=== PATIENT | male | born 1980 | race Two or more races ===

== ENCOUNTER 2017-04-08 08:23 | Day surgery (SDC) | payer SELFPAY ==
[2017-04-08 08:29] VITALS: BMI 22.4
--- NOTE | 2017-04-08 09:03 | PDOC ---
History of Present Illness - General Chief Complaint: Pain, Acute Stated Complaint: RT SIDE PAIN Time Seen by Provider: 04/08/17 08:33 - History of Present Illness Initial Comments: 04/08/17 09:01 The patient is a 36 yo m w/ no PMH who comes into the ED c/o RUQ pain and nausea for the past 1 day. Patient states that after dinner last night, he began to feel a dull, burning pain in his RUQ which radiates to his back. The patient describes the pain as being a 9/10, is worse with movement, when pushing in the RUQ or when breathing and has no alleviating factors. Patient has never felt similar pains before. Patient feels short of breath as the pain is worse with deep inspiration. This AM, the patient had one episode of diarrhea. Patient denies chest pain, fevers, chills Past History - Travel Traveled outside of the country in the last 30 days: No Close contact w/someone who was outside of country & ill: No - Past Medical History Allergies/Adverse Reactions: Allergies Allergy/AdvReac Type Severity Reaction Status Date / Time No Known Allergies Allergy Verified 04/08/17 08:26 Home Medications: Ambulatory Orders NK [No Known Home Medication] 04/08/17 COPD: No - Surgical History Abdominal Surgery: Yes (Left inguinal hernia repair) - Immunization History Immunization Up to Date: Yes - Suicide/Smoking/Psychosocial Hx Smoking History: Never smoked Information on smoking cessation initiated: No Hx Alcohol Use: No Drug/Substance Use Hx: No Substance Use Type: None Review of Systems - Review of Systems Able to Perform ROS?: Yes Is the patient limited Sudanese proficient: No Constitutional: No: Chills, Fever HEENTM: No: Blurred Vision, Recent change in vision Respiratory: Yes: Shortness of Breath (limited 2/2 pain). No: Cough, SOB with Exertion Cardiac (ROS): No: Chest Pain, Edema, Lightheadedness, Palpitations ABD/GI: Yes: Symptoms Reported (RUQ pain worse with movment or palpation), Diarrhea. No: Abdominal Distended : No: Burning, Dysuria Integumentary: No: Bruising Neurological: No: Headache, Numbness, Tingling *Physical Exam - Vital Signs Last Vital Signs Temp Pulse Resp BP Pulse Ox 99.2 F 89 146 H 128/72 99 04/08/17 08:26 04/08/17 08:26 04/08/17 08:26 04/08/17 08:26 04/08/17 08:26 - Physical Exam General Appearance: Yes: Appropriately Dressed. No: Apparent Distress HEENT: positive: Normal ENT Inspection Neck: positive: Supple. negative: Tender Respiratory/Chest: positive: Lungs Clear, Normal Breath Sounds. negative: Chest Tender, Respiratory Distress, Accessory Muscle Use Cardiovascular: positive: Regular Rhythm, S1, S2, Tachycardia. negative: Edema , JVD, Murmur, Gallop/S3, Gallop/S4 Gastrointestinal/Abdominal: positive: Normal Bowel Sounds, Tender (tenderness to palpation in RUQ. Real sign positive.), Flat, Soft. negative: Organomegaly , Guarding Musculoskeletal: positive: Normal Inspection. negative: CVA Tenderness Extremity: positive: Normal Inspection Integumentary: positive: Normal Color, Dry, Warm Neurologic: positive: Fully Oriented, Alert ED Treatment Course - LABORATORY CBC & Chemistry Diagram: 04/08/17 09:27 04/08/17 09:27 Medical Decision Making - Medical Decision Making 04/08/17 09:30 The patient is a 36 yo m w/ no PMH who comes into the ED c/o burning/dull RUQ pain, nausea and diarrhea for the past 1 day. Patient started feeling this pain shortly after eating last evening. Patient has pain to palpation and a positive real sign. This is likely a case of cholelithiasis or possibly simple gastritis. -Mylanta and viscous lidocaine PO -IV pepcid -CBC, CMP -Lipase -RUQ US 04/08/17 11:44 -CBC reveals elevated WBC to 14 -RUQ US negative for infection or stones -Patient now complaining of RLQ tenderness, will obtain CT A/P w/ oral and IV contrast. 04/08/17 14:38 -spoke with the surgical PA for Dr. Ramirez, he has agreed to accept the patient for direct admit to the OR. -type and screen as well as coags added on. -patient NPO *DC/Admit/Observation/Transfer Diagnosis at time of Disposition: Appendicitis - Referrals - Patient Instructions - Post Discharge Activity
--- NOTE | 2017-04-08 09:19 | PDOC ---
Attending Attestation - Resident Resident Name: Edgar Hernandez - ED Attending Attestation I have performed the following: I have examined & evaluated the patient, The case was reviewed & discussed with the resident, I agree w/resident's findings & plan, Exceptions are as noted - HPI HPI: 04/08/17 09:14 36yo M denies PMH p/w 1 day of RUQ abd pain. Pain is dull and burning, 9/10, radiates to back, worse with twisting movements. Denies trauma or recent heavy lifting. Pain began after dinner yesterday and progressed overnight. This morning a/w non bloody diarrhea and nausea. Denies associated sxs. Denies hx similar pain. No F/C. No recent travel. No tx tried Denies cp, sob, rashes, le edema, urinary sxs - Physicial Exam PE: 04/08/17 09:16 GENERAL: Awake, alert, and fully oriented, in no acute distress HEAD: No signs of trauma EYES: PERRLA, EOMI, sclera anicteric, conjunctiva clear ENT: Auricles normal inspection, hearing grossly normal, nares patent, oropharynx clear without exudates. Moist mucosa NECK: Normal ROM, supple, no lymphadenopathy, JVD, or masses LUNGS: Breath sounds equal, clear to auscultation bilaterally. No wheezes, and no crackles HEART: Regular rate and rhythm, normal S1 and S2, no murmurs, rubs or gallops ABDOMEN: Soft, +RUQ and meyer's sign, no other ttp. normoactive bowel sounds. No guarding, no rebound. No masses. No CVAT. EXTREMITIES: Normal range of motion, no edema. No clubbing or cyanosis. No cords, erythema, or tenderness NEUROLOGICAL: Normal speech, cranial nerves intact, negative pronator drift, 5/ 5 strength in all 4 extremities, normal sensation to light touch in all 4 extremities, normal cerebellar exam, normal gait, normal reflexes and tone SKIN: Warm, Dry, normal turgor, no rashes or lesions noted. - Medical Decision Making 04/08/17 09:18 36yo M p/w 1 day RUQ a/w diarrhea. Vitals wnl (resp rate 14, not 146 as documented). DDx includes but not limited to cholecystitis vs pancreatitis vs gastritis vs gastroenteritis -labs -US -pain control -reassess 04/08/17 13:09 US negative. On reexam, pain has migrated to RLQ. CTAP with acute appy. CT also reveals enlarged prostate for pt's age. Results discussed with pt, he is aware of acute appy and likely need for surgery. Pt also aware of enlarged prostate and will f/u with PMD for uro referral. Denies urinary sxs. 04/08/17 17:[address] Ramirez for acute appy Discharge Disposition - Diagnosis Appendicitis Qualifiers: Appendicitis type: acute appendicitis - Discharge Dispostion Condition at time of disposition: Stable Admit: Yes - Prescriptions - Referrals - Patient Instructions - Post Discharge Activity - Transfer to Acute Care Facility Transfer comment: 04/08/17 14:22
[2017-04-08] MEDS ORDERED: FAMOTIDINE 20 MG/50 ML IVPB 20 MG/50 ML MG IVPB ONE ×2 (09:22→09:30)
[2017-04-08] MEDS ORDERED: LIDOCAINE VISCOUS 2% ORAL/TOP 20 ML UNIT-DOSE CUP MM ONE (09:22)
[2017-04-08] MEDS ORDERED: MAG HYDROX/AL HYDROX/SIMETH 355 ML ORAL.SUSP PO ONE (09:22)
[2017-04-08] MEDS ORDERED: LIDOCAINE VISCOUS 2% ORAL/TOP 20 ML UNIT-DOSE CUP ONE (09:29)
[2017-04-08] MEDS ORDERED: MAG HYDROX/AL HYDROX/SIMETH 30 ML UNIT-DOSE CUP ONE (09:30)
[2017-04-08 09:53] LABS: BASOPHIL 0.2 % (0-2.0); EOSINOPHIL 0.3 % (0-4.5); MCHC 34.4 g/dl (32.0-35.9); MEAN CELL VOLUME 87.1 fl (80-96); MEAN PLT VOLUME 9.8 fl (7.5-11.1); NEUTROPHILS 89.9 % (42.8-82.8); PLATELET COUNT 159 K/MM3 (134-434); RDW 13.6 % (11.9-15.9); WHITE BLOOD COUNT 14.3 K/mm3 (4.0-10.0)
[2017-04-08 10:20] LABS: ALBUMIN 4.5 g/dl (3.4-5.0); ALK PHOS 82 U/L (45-117); ANION GAP 5 (8-16); BILIRUBIN,TOTAL 0.8 mg/dL (0.2-1.0); CALCIUM 8.2 mg/dL (8.5-10.1); CO2 28 mmol/L (21-32); CREATININE 0.8 mg/dL (0.7-1.3); GLUCOSE,RANDOM 103 mg/dL (74-106); SGOT/AST 9 U/L (15-37); SGPT/ALT 15 U/L (12-78); TOT PROT 7.4 g/dl (6.4-8.2)
[2017-04-08 14:01] LABS: INR 1.22 (0.82-1.09); PROTHROMBIN TIME (PATIENT) 13.8 SEC (9.98-11.88)
--- NOTE | 2017-04-08 14:27 | HP ---
Admitting History and Physical - Admission Chief Complaint: RLQ abd pain, nausea History Source: Patient Limitations to Obtaining History: No Limitations - Past Medical History Gastrointestinal: No: Ascites, Cancer, Constipation, Crohn's Disease, Diverticulitis, Diverticulosis, Esophageal Varices, Gastritis, GERD, GI Bleed, Hemorrhoids, Hiatal Hernia, Inflamatory Bowel Disease, Irritable Bowel Disease, Pancreatitis, Peptic Ulcer Disease, Ulcerative Colitis, Other Hepatobiliary: No: Cirrhosis, Cholelithiasis, Cholecystitis, Choledocholithiasis , Hepatitis A, Hepatitis B, Hepatitis C, Other Renal/: No: Renal Failure, Renal Inusuff, BPH, Cancer, Hematuria, Hemodialysis , Neurogenic Bladder, Renal Calculi, UTI, Other Heme/Onc: No: Anemia, B12 Deficiency, Bleeding Disorder, Cancer, Current Chemotherapy, Current Radiation Therapy, Hemochromatosis, Hypercoaguable State, Myeloproliferative Synd, Sickle Cell Disease, Sickle Cell Trait, Thrombocytopenia, Other Infectious Disease: No: AIDS, C-Diff, Herpes Zoster, HIV, MRSA, STD's, Tuberculosis, VREF, Other Psych: No: Addictions, Anxiety, Bipolar, Depression, Panic, Psychosis, Schizophrenia, Other Musculoskeletal: No: Bursitis, Chronic low back pain, Hemiparesis, Hemiplegia, Osteoarthritis, Paraplegia, Other Rheumatology: No: Fibromyalgia, Gout, Lupus, Rheumatoid Arthritis, Sarcoidosis, Vasculitis, Other ENT: No: Allergic Rhinitis, Sinusitis, Other Endocrine: No: Ellington's Disease, Hemlock's Disease, Diabetes Insipidus, Diabetes Mellitus, Hyperparathyroidism, Hyperthyroidism, Hypothyroidism, Osteopenia, SIADH, Other Dermatology: No: Basal Cell, Cellulitis, Eczema, Melanoma, Psoriasis, Squamous Cell, Other - Smoking History Smoking history: Never smoked - Alcohol/Substance Use Hx Alcohol Use: No Home Medications - Allergies Allergies/Adverse Reactions: Allergies Allergy/AdvReac Type Severity Reaction Status Date / Time No Known Allergies Allergy Verified 04/08/17 08:26 - Home Medications Home Medications: Ambulatory Orders NK [No Known Home Medication] 04/08/17 Physical Examination Vital Signs: Vital Signs Temperature 99.2 F 04/08/17 08:26 Pulse Rate 89 04/08/17 08:26 Respiratory Rate 146 H 04/08/17 08:26 Blood Pressure 128/72 04/08/17 08:26 O2 Sat by Pulse Oximetry (%) 99 04/08/17 08:26 Labs: CBC, BMP 04/08/17 09:27 04/08/17 09:27
--- NOTE | 2017-04-08 14:43 | HP ---
CHIEF COMPLAINT: RLQ abd pain, nausea HPI: 36 yo male without any PMHx, presents to [facility] ED with c/o acute onset RLQ pain x1 day. Labs + leukocytosis with mild left shift. CT scan while in ED confirms acute appendicitis without perforation. This AM, the patient had one episode of diarrhea. Patient denies CP, fevers, chills Recent Travel: Denies PMHx: Denies PSHx: Left inguinal hernia repair Social History: Smoking:Denies Alcohol:Social Drugs:Denies Allergies: No Known Allergies Allergy (Verified 04/08/17 08:26) Home Meds: Denies taking any ROS CONSTITUTIONAL: Absent: fever, chills, diaphoresis, generalized weakness, malaise, loss of appetite, weight change HEENT: Absent: rhinorrhea, nasal congestion, throat pain, throat swelling, difficulty swallowing, mouth swelling, ear pain, eye pain, visual changes CARDIOVASCULAR: Absent: chest pain, syncope, palpitations, irregular heart rate , lightheadedness, peripheral edema RESPIRATORY: Absent: cough, shortness of breath, dyspnea with exertion, orthopnea, wheezing, stridor, hemoptysis GASTROINTESTINAL:Absent: abdominal pain, abdominal distension, nausea, vomiting , diarrhea, constipation, melena, hematochezia GENITOURINARY: Absent: dysuria, frequency, urgency, hesitancy, hematuria, flank pain, genital pain MUSCULOSKELETAL: Absent: myalgia, arthralgia, joint swelling, back pain, neck pain SKIN: Absent: rash, itching, pallor HEMATOLOGIC/IMMUNOLOGIC: Absent: easy bleeding, easy bruising, lymphadenopathy, frequent infections ENDOCRINE:Absent: unexplained weight gain, unexplained weight loss, heat intolerance, cold intolerance NEUROLOGIC: Absent: headache, focal weakness or paresthesias, dizziness, unsteady gait, seizure, mental status changes, bladder or bowel incontinence PSYCHIATRIC: Absent: anxiety, depression, suicidal or homicidal ideation, hallucinations. Last Vital Signs Temp Pulse Resp BP Pulse Ox 99.2 F 89 146 H 128/72 99 04/08/17 08:26 04/08/17 08:26 04/08/17 08:26 04/08/17 08:26 04/08/17 08:26 CBC, BMP 04/08/17 09:27 04/08/17 09:27 INR, PTT INR 1.22 (0.82-1.09) H 04/08/17 13:29 Hepatic Panel Total Bilirubin 0.8 mg/dL (0.2-1.0) 04/08/17 09:27 AST 9 U/L (15-37) L 04/08/17 09:27 ALT 15 U/L (12-78) 04/08/17 09:27 Alkaline Phosphatase 82 U/L (45-117) 04/08/17 09:27 Albumin 4.5 g/dl (3.4-5.0) 04/08/17 09:27 PE GENERAL: A&Ox4 HEAD: NC. AT. EYES: PERRL. Sclera anicteric, conjunctiva clear. NECK: Normal ROM. Supple w/o lymphadenopathy or JVD LUNGS: CTA bilat anteriorly HEART: RRR ABD: McBurney's point tenderness. + Psoas & obturator signs. No organomegaly appreciated. MUSCULOSKELETAL: No CVAT UE: 2+ pulses, warm, well-perfused. No cyanosis. No clubbing. No peripheral edema. LE: 2+ pulses, warm, well-perfused. No calf tenderness. No peripheral edema. NEUROLOGICAL: CN II-XII intact. Normal speech. Gait not observed PSYCHIATRIC: Cooperative. Good eye contact. Appropriate mood and affect. SKIN: Warm, dry, normal turgor, no rashes or lesions noted, normal capillary refill. Problem List - Problem (1) Appendicitis Assessment/Plan: Admit to Dr. Ramirez's service NPO (except PO meds) / IVF GI / DVT ppx Informed consent obtained and placed in his paper chart Going to OR today around 15:30 for lap appendectomy, possible open IV abx Morphine 2mg q4h prn Tylenol 650mg PO for fever > 100.3F Code(s): K37 - UNSPECIFIED APPENDICITIS Qualifiers: Appendicitis type: acute appendicitis Visit type - Emergency Visit Emergency Visit: Yes Care time: The patient presented to the Emergency Department on the above date and was hospitalized for further evaluation of their emergent condition. - New Patient This patient is new to me today: Yes Date on this admission: 04/08/17 - Critical Care Critical Care patient: No
[2017-04-08] MEDS ORDERED: PROPOFOL 20 ML ONE ×2 (15:42)
[2017-04-08] MEDS ORDERED: MIDAZOLAM HCL 2 MG/2 ML SINGLE DOSE VIAL ONE (15:42)
[2017-04-08] MEDS ORDERED: ROCURONIUM BROMIDE 50 MG/5 ML VIAL ONE (15:43)
[2017-04-08] MEDS ORDERED: DESFLURANE GAS 240 ML BOTTLE IH ONE (15:47)
[2017-04-08] MEDS ORDERED: LIDOCAINE HCL/PF 2% SDV 5ML VIAL ONE (15:50)
[2017-04-08] MEDS ORDERED: cefOXitin SODIUM 1 GM VIAL (RESTRICTED TO ID) IVPB ONE (16:05)
[2017-04-08] MEDS ORDERED: GLYCOPYRROLATE 0.2 MG/1 ML VIAL ONE (16:23)
[2017-04-08] MEDS ORDERED: NEOSTIGMINE METHYLSULFATE 0.5 MG/ML - 10 ML MDV ONE (16:23)
[2017-04-08] MEDS ORDERED: ONDANSETRON 4 MG/2 ML VIAL IVPUSH PRN ×2 (16:44→17:29)
[2017-04-08] MEDS ORDERED: LACTATED RINGERS SOLUTION 1,000 ML IV SCH (16:45)
[2017-04-08] MEDS ORDERED: KETOROLAC TROMETHAMINE 30 MG/1 ML VIAL ONE (17:03)
--- NOTE | 2017-04-08 17:21 | OP ---
Operative Note - Note: Operative Date: 04/08/17 Pre-Operative Diagnosis: acute appendicitis Operation: laparoscopic appendectomy Surgeon: Sukh Ramirez Dam Tender Assistant: Ina Mcdaniel Anesthesiologist/NATIONAL SALES CONSULTANT: Herlinda Murray Anesthesia: General Specimens Removed: appendix Estimated Blood Loss (mls): 20 Operative Report Dictated: Yes
--- NOTE | 2017-04-08 17:22 | SURG ---
Surgery Environmental Sampler Note Environmental Sampler: Ina Mcdaniel PA-C Date of Service: 04/08/17 Diagnosis: acute appendicitis Procedure: laparoscopic appendectomy I was present for the entirety of the operative procedure. For further detail, please refer to operative report. Visit type - Case Type Case Type: ED Admission - Emergency Emergency Visit: Yes Care time: The patient presented to the Emergency Department on the above date and was hospitalized for further evaluation of their emergent condition. - New patient This patient is new to me today: Yes Date on this admission: 04/08/17
[2017-04-08] MEDS ORDERED: oxyCODONE HCL 5 MG TABLET PO PRN ×2 (17:25→17:26)
[2017-04-08] MEDS ORDERED: BUPIVACAINE HCL/PF 0.5% (5MG/ML) 10 ML VIAL IJ ONE (17:32)
[2017-04-08] MEDS: HYDROmorphone HCL CARPU-JECT 1 MG/1 ML DISP.SYRIN IVPUSH PRN ×4 (17:50→18:19)
[2017-04-08] MEDS ORDERED: HYDROmorphone HCL CARPU-JECT 2 MG/1 ML DISP.SYRIN ONE (17:50)
[2017-04-08] MEDS: LACTATED RINGERS SOLUTION 1,000 ML IV SCH (19:29)
[2017-04-08] MEDS: ACETAMINOPHEN 325 MG TABLET (FP) PO SCH (20:00)
[2017-04-08] MEDS: HEPARIN NA (PORCINE) 5,000 UNITS/ML 1ML VIAL SQ SCH (22:55)
[2017-04-09] MEDS ORDERED: KETOROLAC TROMETHAMINE 30 MG/1 ML VIAL IVPUSH PRN (01:00)
[2017-04-09] MEDS: LACTATED RINGERS SOLUTION 1,000 ML IV SCH (01:19)
[2017-04-09] MEDS: ACETAMINOPHEN 325 MG TABLET (FP) PO SCH ×2 (02:52→09:19)
[2017-04-09] MEDS: HEPARIN NA (PORCINE) 5,000 UNITS/ML 1ML VIAL SQ SCH (05:47)
[2017-04-09 08:32] LABS: BASOPHIL 0.1 % (0-2.0); MCH 29.5 pg (25.7-33.7); MCHC 33.8 g/dl (32.0-35.9); MEAN CELL VOLUME 87.4 fl (80-96); MEAN PLT VOLUME 10.4 fl (7.5-11.1); PLATELET COUNT 162 K/MM3 (134-434); RDW 13.7 % (11.9-15.9); WHITE BLOOD COUNT 10.4 K/mm3 (4.0-10.0)
[2017-04-09 08:50] VITALS: BP 107/64; PULSE 71; TEMP 98.3
[2017-04-09 08:52] LABS: ANION GAP 12 (8-16); CALCIUM 8.3 mg/dL (8.5-10.1); CO2 24 mmol/L (21-32); CREATININE 0.6 mg/dL (0.7-1.3); GLUCOSE,RANDOM 105 mg/dL (74-106)
--- NOTE | 2017-04-09 11:13 | PN ---
Progress Note, Physician History of Present Illness: s/p appendectomy feeling well tolerating clears - Current Medication List Current Medications: Active Medications Acetaminophen (Tylenol -) 650 mg PO Q6H FOR[facility], [facility]1983 Last Admin: 04/09/17 09:19 Dose: 650 mg Heparin Sodium (Porcine) (Heparin -) 5,000 unit SQ TID [facility], 1928–1983 Last Admin: 04/09/17 05:47 Dose: 5,000 unit Lactated Ringer's (Lactated Ringers Solution) 1,000 mls @ 125 mls/hr IV ASDIR FOR[facility], 1928–1983 Last Admin: 04/09/17 01:19 Dose: 125 mls/hr Ketorolac Tromethamine (Toradol Injection -) 30 mg IVPUSH Q8H-IV PRN PRN Reason: PAIN Stop: 04/14/17 00:59 Ondansetron HCl (Zofran Injection) 4 mg IVPUSH Q6H PRN PRN Reason: NAUSEA AND/OR VOMITING Oxycodone HCl (Roxicodone -) 5 mg PO Q6H PRN PRN Reason: PAIN LEVEL 1-5 Oxycodone HCl (Roxicodone -) 10 mg PO Q6H PRN PRN Reason: PAIN LEVEL 6-10 - Objective Vital Signs: Vital Signs Temperature 98.3 F 04/09/17 08:49 Pulse Rate 71 04/09/17 08:49 Respiratory Rate 20 04/09/17 08:49 Blood Pressure 107/64 04/09/17 08:49 O2 Sat by Pulse Oximetry (%) 95 04/08/17 21:00 Labs: CBC, BMP 04/09/17 07:00 04/09/17 07:00 INR, PTT INR 1.22 (0.82-1.09) H 04/08/17 13:29 Assessment/Plan s/p lap appendectomy advance diet and anuradha DC home if tolerating regular diet
--- NOTE | 2017-04-09 18:37 | PN ---
Progress Note (short form) - Note Progress Note: Anesthesia post op note. POD#1, S/P laparoscopic appendectomy. No post anesthesia complications reported. Pat D/C'd home.
--- NOTE | 2017-04-12 16:27 | PATH ---
Surgical Pathology Report Patient Name: TAMRA DEAN [facility]. Rec. #: [id number] /Age/Gender: 1980 (Age: 36) / M Account: [id number] Location: AMBULATORY SURG Taken: 04/08/2017 Received: 04/11/2017 Reported: 04/12/2017 Physicians: Sukh Ramirez MD Specimen(s) Received APPENDIX Clinical History Acute appendicitis Final Diagnosis APPENDIX, LAPAROSCOPIC APPENDECTOMY: ACUTE APPENDICITIS AND PERIAPPENDICITIS. Electronically Signed Emily Bacon M.D. Gross Description Received in formalin, labeled "appendix," is a 5 cm. in length vermiform appendix with a stapled margin of resection and moderate attached fat. The serosa is cabrera melissa with attached exudate. Sectioning reveals a focally dilated lumen containing fecal material. The wall of the appendix averages 0.2 cm. in thickness. Software Validation Engineer sections are submitted in one cassette. 04/11/2017 saudi04/11/2017
== END 2017-04-09 14:25 | disposition home or self-care (01) ==
LOC: JER 08:23 → JASUSAT 14:23 → J6S 19:40 → JASUSAT 04-09 14:25
PROVIDERS: ATTEND Surgery
PROC: 0DTJ4ZZ Resection of Appendix, Percutaneous Endoscopic Approach (ICD-10-PCS; principal; 2017-04-08 15:30)
DX: K35.80 Unspecified acute appendicitis (principal)
CPT/HCPCS: 36415; 74177-TC; 76705-TC; 80048; 80053; 83690; 85025; 85610; 86850; 86900; 86901; 99285-25; J1644

== ENCOUNTER 2018-11-05 13:26 | Emergency (ER) | payer SELFPAY | END 2018-11-05 14:41 | disposition home or self-care (01) | LOC: JERFT 13:26 ==

== ENCOUNTER 2020-12-22 09:48 | Emergency (ER) | payer SELFPAY ==
[2020-12-22 09:53] VITALS: BMI 22.7
[2020-12-22] MEDS ORDERED: ONDANSETRON 4 MG/2 ML VIAL IVPUSH ONE (10:44)
[2020-12-22] MEDS ORDERED: MECLIZINE HCL 25 MG TABLET (FP) PO ONE ×3 (10:45→12:12)
[2020-12-22] MEDS ORDERED: SODIUM CHLORIDE 0.9% 500 ML INFUS.BAG IV ONE (10:49)
[2020-12-22] MEDS ORDERED: METOCLOPRAMIDE HCL INJECTION 10 MG/2 ML VIAL IVPUSH ONE (10:51)
[2020-12-22] MEDS ORDERED: MECLIZINE HCL 25 MG TABLET (FP) ONE ×2 (10:57→12:29)
[2020-12-22] MEDS ORDERED: METOCLOPRAMIDE HCL INJECTION 10 MG/2 ML VIAL ONE (10:57)
[2020-12-22 11:29] LABS: BASO % 0.3 % (0-2.0); EOS % 0.2 % (0-4.5); HEMATOCRIT 47.6 % (35.4-49); HEMOGLOBIN 16.6 GM/dL (11.7-16.9); LYMPH % 5.2 % (8-40); MCH 30.7 pg (25.7-33.7); MCHC 34.9 g/dl (32.0-35.9); MEAN PLT VOLUME 10.5 fl (7.5-11.1); MONO % 2.9 % (3.8-10.2); NEUT % 91.4 % (42.8-82.8); PLATELET COUNT 182 10^3/uL (134-434); RBC 5.41 M/mm3 (4.00-5.60); RDW 13.7 % (11.9-15.9); WHITE BLOOD COUNT 13.7 K/mm3 (4.0-10.0)
[2020-12-22 11:56] LABS: CALCIUM 9.2 mg/dL (8.5-10.1)
[2020-12-22 11:57] LABS: ALBUMIN 4.2 g/dl (3.4-5.0); BLOOD UREA NITROGEN 11.7 mg/dL (7-18)
[2020-12-22 12:00] LABS: CREATININE 0.8 mg/dL (0.55-1.3)
[2020-12-22 12:02] LABS: BILIRUBIN,TOTAL 0.5 mg/dL (0.2-1); TOT PROT 7.8 g/dl (6.4-8.2)
[2020-12-22 12:18] LABS: ANISOCYTOSIS 0; MACROCYTOSIS 0; PLATELET ESTIMATE NORMAL
[2020-12-22 13:31] VITALS: BP 105/66; PULSE 64; TEMP 98.1
== END 2020-12-22 13:32 | disposition home or self-care (01) ==
LOC: JER 09:48
PROC: 3E033NZ Introduction of Analgesics, Hypnotics, Sedatives into Peripheral Vein, Percutaneous Approach (ICD-10-PCS; principal; 2020-12-22)
PROC: 3E033GC Introduction of Other Therapeutic Substance into Peripheral Vein, Percutaneous Approach (ICD-10-PCS; 2020-12-22)
DX: R42 Dizziness and giddiness (principal)
CPT/HCPCS: 36415; 80053; 85025; 99284-25

== ENCOUNTER 2022-04-18 21:22 | Emergency (ER) | payer OTHER ==
[2022-04-18 21:37] VITALS: BP 121/75; PULSE 64; RESP 18; TEMP 97.6; BMI 23.6
[2022-04-18] MEDS ORDERED: diphenhydrAMINE HCL 12.5 MG/5 ML UNIT-DOSE CUPS PO ONE (22:21)
[2022-04-18] MEDS ORDERED: DEXAMETHASONE SOD PHOSPHATE 10 MG/1 ML VIAL IM ONE (22:21)
[2022-04-18] MEDS ORDERED: DEXAMETHASONE SOD PHOSPHATE 10 MG/1 ML VIAL ONE (22:26)
[2022-04-18] MEDS ORDERED: diphenhydrAMINE HCL 25 MG CAPSULE (FP) PO ONE (22:26)
[2022-04-18 23:07] LABS: BASO % 0.7 % (0-2.0); EOS % 6.8 % (0-4.5); HEMATOCRIT 45.8 % (35.4-49); HEMOGLOBIN 15.7 GM/dL (11.7-16.9); LYMPH % 24.5 % (8-40); MCH 30.1 pg (25.7-33.7); MCHC 34.3 g/dl (32.0-35.9); MEAN CELL VOLUME 87.7 fl (80-96); MONO % 8.5 % (3.8-10.2); NEUT % 59.5 % (42.8-82.8); PLATELET COUNT 179 10^3/uL (134-434); RBC 5.22 M/mm3 (4.00-5.60); WHITE BLOOD COUNT 6.5 K/mm3 (4.0-10.0)
[2022-04-18 23:20] LABS: CALCIUM 8.2 mg/dL (8.5-10.1)
[2022-04-18 23:22] LABS: ALBUMIN 3.8 g/dl (3.4-5.0); BLOOD UREA NITROGEN 19.7 mg/dL (7-18)
[2022-04-18 23:25] LABS: BILIRUBIN,TOTAL 0.3 mg/dL (0.2-1); CREATININE 1.1 mg/dL (0.55-1.3); TOT PROT 7.2 g/dl (6.4-8.2)
== END 2022-04-19 00:10 | disposition home or self-care (01) ==
LOC: JER 21:22
PROC: 3E023NZ Introduction of Analgesics, Hypnotics, Sedatives into Muscle, Percutaneous Approach (ICD-10-PCS; principal; 2022-04-18)
DX: R21 Rash and other nonspecific skin eruption (principal)
CPT/HCPCS: 36415; 80053; 85025; 99283-25; J1100

== ENCOUNTER 2023-01-21 08:57 | Emergency (ER) | payer SELFPAY ==
[2023-01-21 09:12] VITALS: BP 142/97; PULSE 73; RESP 16; TEMP 98.3; BMI 24.7
[2023-01-21] MEDS ORDERED: CYCLOBENZAPRINE HCL 10 MG TABLET (FP) PO ONE (09:37)
[2023-01-21] MEDS ORDERED: IBUPROFEN 600 MG TABLET (FP) PO ONE ×2 (09:37→09:48)
[2023-01-21] MEDS ORDERED: CYCLOBENZAPRINE HCL 10 MG TABLET (FP) ONE (09:48)
[2023-01-21 10:38] LABS: BASO % 0.6 % (0-2.0); EOS % 2.5 % (0-4.5); HEMATOCRIT 47.8 % (35.4-49); HEMOGLOBIN 16.3 GM/dL (11.7-16.9); LYMPH % 15.2 % (8-40); MCH 29.6 pg (25.7-33.7); MCHC 34.1 g/dl (32.0-35.9); MEAN PLT VOLUME 10.3 fl (7.5-11.1); MONO % 6.7 % (3.8-10.2); PLATELET COUNT 183 10^3/uL (134-434); RDW 14.1 % (11.9-15.9); WHITE BLOOD COUNT 6.3 K/mm3 (4.0-10.0)
[2023-01-21 10:58] LABS: CALCIUM 8.9 mg/dL (8.5-10.1)
[2023-01-21 10:59] LABS: ALBUMIN 4.1 g/dl (3.4-5.0); BLOOD UREA NITROGEN 12.7 mg/dL (7-18)
[2023-01-21 11:02] LABS: CREATININE 0.8 mg/dL (0.55-1.3)
[2023-01-21 11:03] LABS: BILIRUBIN,TOTAL 0.5 mg/dL (0.2-1); TOT PROT 7.3 g/dl (6.4-8.2)
== END 2023-01-21 11:25 | disposition home or self-care (01) ==
LOC: JER 08:57
DX: R07.89 Other chest pain (principal); R20.2 Paresthesia of skin
CPT/HCPCS: 36415; 71046-TC-FY; 80053; 83690; 84484; 85025; 93005; 93010; 99285-25

== ENCOUNTER 2023-02-15 11:09 | Emergency (ER) | payer SELFPAY ==
[2023-02-15 11:13] VITALS: BP 136/83; PULSE 69; RESP 20; TEMP 98.2; BMI 25.4
[2023-02-15] MEDS ORDERED: ACETAMINOPHEN 500 MG TABLET (FP) PO ONE (11:39)
[2023-02-15] MEDS ORDERED: FAMOTIDINE 20 MG TABLET PO ONE (11:39)
[2023-02-15] MEDS ORDERED: MAG HYDROX/AL HYDROX/SIMETH 30 ML UNIT-DOSE CUP PO ONE (11:40)
[2023-02-15] MEDS ORDERED: LIDOCAINE VISCOUS 2% ORAL/TOP 15 ML UNIT-DOSE CUP MM ONE (11:40)
[2023-02-15] MEDS ORDERED: FAMOTIDINE 20 MG TABLET ONE (11:46)
[2023-02-15] MEDS ORDERED: MAG HYDROX/AL HYDROX/SIMETH 30 ML UNIT-DOSE CUP ONE (11:47)
[2023-02-15] MEDS ORDERED: ACETAMINOPHEN 325 MG TABLET (FP) ONE (11:48)
== END 2023-02-15 13:33 | disposition home or self-care (01) ==
LOC: JER 11:09
DX: R10.84 Generalized abdominal pain (principal); K21.9 Gastro-esophageal reflux disease without esophagitis; R11.0 Nausea
CPT/HCPCS: 76705-TC; 99284-25